=== PATIENT | female | born 2000 | race Caucasian/White ===

== ENCOUNTER 2023-09-11 14:27 | Emergency (ER) | payer MEDICAID ==
[~2023-09-11] VITALS: Ht 165.1 cm; Wt 66.0 kg
[2023-09-11 14:34] VITALS: O2SAT 97
[2023-09-11] MEDS: LIDOCAINE HCL/EPINEPHRINE 1%-EPI 1:100,000 20 ML VIAL INFIL ONE (15:41)
[2023-09-11] MEDS: KETOROLAC 30MG/ML VIAL IM ONE (15:41)
[2023-09-11] MEDS: HYDROCODONE/ACETAMINOPHEN 5/325MG TABLET PO ONE (15:41)
[2023-09-11] MEDS: TETANUS, DIPHTHERIA, PERTUSSIS VAC/PF 0.5ML (>10YR OLD) IM ONE (15:42)
[2023-09-11] MEDS: CEFAZOLIN SODIUM 2000MG/VIAL IJ ONE (16:45)
[2023-09-11 17:22] VITALS: BP 110/74; PULSE 74; RESP 18; TEMP 98.8
== END 2023-09-11 17:30 | disposition home or self-care (01) ==
LOC: ER 14:27
DX: S62.614B Displaced fracture of proximal phalanx of right ring finger, initial encounter for open fracture (principal); S62.616B Displaced fracture of proximal phalanx of right little finger, initial encounter for open fracture; V98.8XXA Other specified transport accidents, initial encounter; Y93.89 Activity, other specified; Y92.89 Other specified places as the place of occurrence of the external cause; Y99.8 Other external cause status
CPT/HCPCS: 81025; 73130; 90715; 29125; 90471; 96372; 99284; J0690; J1885; J3490; Z7610 ×3; 96374